=== PATIENT | male | born 1940 | race Two or more races ===

== ENCOUNTER 2018-09-16 15:07 | Emergency (ER) | payer MEDICARE, OTHER ==
[~2018-09-16] VITALS: Ht 165.1 cm; Wt 73.5 kg
[2018-09-16 15:37] VITALS: BP 187/93
--- NOTE | 2018-09-16 15:55 | NUR ---
PATIENT REFUSED TO SIGN DISCHARGE INSTRUCTIONS. DR HAGER EXPLAINED TO PATIENT BUT PATIENT STILL DOES NOT WANT TO SIGN DISCHARGE INSTRUCTIONS. CHARGE NURSE AWARE. PATIENT DISCHARGED FROM ER AMBULATORY. NO ACUTE DISTRESS. DENIES ANY PAIN OR DISCOMOFRT
== END 2018-09-16 15:55 | disposition home or self-care (01) ==
LOC: ER 15:16
DX: R10.9 Unspecified abdominal pain (principal); I10 Essential (primary) hypertension; G89.29 Other chronic pain; Z59.0 Homelessness
CPT/HCPCS: Z7502

== ENCOUNTER 2019-05-29 16:25 | Emergency (ER) | payer OTHER, MEDICARE ==
[~2019-05-29] VITALS: Ht 162.6 cm; Wt 64.0 kg
[2019-05-29] MEDS ORDERED: NIFEdipine (10MG) 10 MG CAPSULE ONE (17:45)
--- NOTE | 2019-05-29 17:59 | NUR ---
REPORT GIVEN TO EMILIO FOR CONTINUITY OF CARE
[2019-05-29] MEDS ORDERED: NIFEdipine XL (30MG) 30 MG TAB PO SCH (18:00)
[2019-05-29 19:33] VITALS: BP 119/68
== END 2019-05-29 19:34 ==
LOC: ER 16:27
DX: I10 Essential (primary) hypertension (principal); G89.29 Other chronic pain; Z90.49 Acquired absence of other specified parts of digestive tract; Z98.890 Other specified postprocedural states; Z86.19 Personal history of other infectious and parasitic diseases; Z59.0 Homelessness